=== PATIENT | male | born 1985 | race Caucasian/White ===

== ENCOUNTER 2017-01-13 18:55 | Emergency (ER) | payer OTHER ==
[2017-01-13] MEDS ORDERED: Lactated Ringers 1,000 ML IV ONE ×2 (18:57→19:20)
[2017-01-13] MEDS ORDERED: Diphtheria,Pertussis(Acell),Tetanus Vaccine 0.5 ML Syringe IM ONE (19:02)
--- NOTE | 2017-01-13 19:16 | PCM.SN ---
- Free Text/Narrative Note: Dr. Wakefield dictating an addendum note as I have assisted with the transfer medications for this patient. The case was discussed with Dr. Joseph in the ER at [facility] at 19 10 PM. He is aware of this case and has accepted the patient for transfer. Flight team is being arranged and Dr. Fernandez and Dr. Arita are at bedside.
--- NOTE | 2017-01-13 19:24 | PCM.SN ---
- Free Text/Narrative Note: Called to ER for Trauma Code. Upon arrival, pt is awake with spontaneous respirations. 16g PIV started to Rt AC with 10mL of blood drawn for lab.
[2017-01-13 19:56] LABS: CHLORIDE,CL 104 mmol/L (98-110); SODIUM,NA 140 mmol/L (136-146)
--- NOTE | 2017-01-13 20:24 | PCM.CONS ---
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 Report from bystanders and EMS reports a loss of consciousness of 10-15 minutes. Patient was awake and alert when he arrived in the emergency room. He was oriented to person and time, but not completely oriented to place. He complains of left leg pain and right hip pain. Onset of Symptoms: Reports: Today Duration of Symptoms: Reports: Hour(s): Location: Reports: Face, Lower Extremity, Left Quality: Reports: Sharp, Stabbing Severity: Moderate Improves with: Reports: Rest Worsens with: Reports: Movement Context: Reports: Trauma Associated Symptoms: Reports: Confusion. Denies: Headaches, Nausea/Vomiting - Related Data Allergies/Adverse Reactions: Allergies Allergy/AdvReac Type Severity Reaction Status Date / Time No Known Allergies Allergy Verified 01/13/17 19:51 Home Medications: Home Meds Dextroamphetamine/Amphetamine [Adderall] 0 mg PO DAILY 01/13/17 [History] Past Medical History Psychiatric History: Reports: ADHD H&P Review of Systems - Review of Systems: Review Of Systems: See Below General: Denies: Fever, Chills HEENT: Reports: Other (Laceration above the right eye) Cardiovascular: Denies: Chest Pain, Palpitations, Dyspnea on Exertion Gastrointestinal: Denies: Abdominal Pain, Black Stool, Bloody Stool, Constipation, Diarrhea Genitourinary: Denies: Dysuria, Frequency, Burning, Pain Musculoskeletal: Reports: Leg Pain (Left leg) Skin: Denies: Cyanosis, Jaundice, Mottled Psychiatric: Reports: Confusion. Denies: Depression, Mood Lability, Anxiety Neurological: Denies: Confusion, Pre-Existing Deficit, Seizure, Syncope, Tingling, Weakness Hematologic/Lymphatic: Reports: No Symptoms Immunologic: Reports: No Symptoms Exam - Exam Exam: See Below - Exam Quality Assessment: Supplemental Oxygen, Urinary Catheter (Placed after digital rectal examination and no blood at the urethral meatus) General: Alert, Cooperative, Moderate Distress, Sedated, Lethargic (Around his is easily) HEENT: Conjunctiva Clear, EACs Clear, EOMI, Hearing Intact, Mucosa Moist & [place] , Nares Patent, Pupils Equal, Pupils Reactive, PERRLA Neck: Supple, Trachea Midline, Other (Cervical collar left in place. No neck tenderness.) Lungs: Clear to Auscultation, Normal Respiratory Effort. No: Decreased Breath Sounds, Crackles, Rales, Rhonchi, Stridor, Wheezing Cardiovascular: Regular Rate, Regular Rhythm, Normal S1, Normal S2. No: Irregular Rhythm, Tachycardia, Systolic Murmur GI/Abdominal Exam: Soft, Non-Tender, No Organomegaly, No Distention. No: Guarding, Rigid, Rebound, Tender (Male) Exam: No Hernia, Normal Inspection, Normal Prostate, Circumcised. No : Urethral Discharge Rectal (Males) Exam: Normal Exam, Normal Rectal Tone, Prostate Normal Back Exam: Normal Inspection, Full Range of Motion. No: CVA Tenderness (L), CVA Tenderness (R), Paraspinal Tenderness, Vertebral Tenderness Extremities: No Pedal Edema, Slow Capillary Refill, Leg Pain (Left leg with lower one third deformity. Skin is intact.). No: Joint Swelling, Fermin's Sign , Increased Warmth, Mottled, Pallor, Redness Peripheral Pulses: 4+: Posterior Tibial (L), Posterior Tibial (R), Dorsalis Pedis (L), Dorsalis Pedis (R) Skin: Warm, Dry, Intact, Other (Facial abrasions. 3 cm right eyebrow laceration.) Neurological: Cranial Nerves Intact, Strength Equal Bilateral Neuro Extensive - Mental Status: Alert (Oriented 2.), Normal Cognition, Memory Intact, Disorientation to Place, Nl Response to Commands, Opens Eyes to Commands , Other (GCS 13-14) Psychiatric: Alert, Normal Affect, Normal Mood - Patient Data Lab Results Last 24 hrs: Laboratory Results - last 24 hr 01/13/17 01/13/17 01/13/17 Range/Units 18:54 18:54 19:30 WBC 13.58 H (4.0-11.0) K/uL RBC 4.41 L (4.50-5.90) M/uL Hgb 13.8 (13.0-17.0) g/dL Hct 40.9 (38.0-50.0) % MCV 92.7 (80.0-98.0) fL MCH 31.3 (27.0-32.0) pg MCHC 33.7 (31.0-37.0) g/dL RDW Std Deviation 50.8 (28.0-62.0) fl RDW Coeff of Ga 15 (11.0-15.0) % Plt Count 294 (150-400) K/uL MPV 10.40 (7.40-12.00) fL Neut % (Auto) 78.4 (48.0-80.0) % Lymph % (Auto) 14.2 L (16.0-40.0) % Addison % (Auto) 6.3 (0.0-15.0) % Eos % (Auto) 0.9 (0.0-7.0) % Baso % (Auto) 0.2 (0.0-1.5) % Neut # (Auto) 10.7 H (1.4-5.7) K/uL Lymph # (Auto) 1.9 (0.6-2.4) K/uL Addison # (Auto) 0.9 H (0.0-0.8) K/uL Eos # (Auto) 0.1 (0.0-0.7) K/uL Baso # (Auto) 0.0 (0.0-0.1) K/uL Nucleated RBC % 0.0 /100WBC Nucleated RBCs # 0 K/uL Sodium 140 (136-146) mmol/L Potassium 2.9 L (3.5-5.1) mmol/L Chloride 104 (98-110) mmol/L Carbon Dioxide 25 (21-31) mmol/L BUN 12 (6.0-23.0) mg/dL Creatinine 1.0 (0.6-1.5) mg/dL Est Cr Clr Drug Dosing TNP Estimated GFR (MDRD) > 60.0 ml/min Glucose 176 H (60-110) mg/dL Calcium 8.9 (8.8-10.8) mg/dL Total Bilirubin 0.5 (0.1-1.5) mg/dL AST 47 H (5-40) IU/L ALT 37 (8-54) IU/L Alkaline Phosphatase 55 (40-150) Total Protein 7.0 (6.0-8.0) g/dL Albumin 4.2 (3.5-5.0) g/dL Globulin 2.8 (2.0-3.5) g/dL Albumin/Globulin Ratio 1.5 (1.3-2.8) Urine Color YELLOW Urine Appearance CLEAR Urine pH 7.0 (5.0-8.0) Ur Specific [employer] 1.020 (1.001-1.035) Urine Protein NEGATIVE (NEGATIVE) mg/dL Urine Glucose (UA) 100 H (NEGATIVE) mg/dL Urine Ketones NEGATIVE (NEGATIVE) mg/dL Urine Occult Blood SMALL H (NEGATIVE) Urine Nitrite NEGATIVE (NEGATIVE) Urine Bilirubin NEGATIVE (NEGATIVE) Urine Urobilinogen 0.2 (<2.0) EU/dL Ur Leukocyte Esterase NEGATIVE (NEGATIVE) Urine RBC 10-12 (0-2/HPF) Urine WBC 0-1 (0-5/HPF) Ur Epithelial Cells RARE (NONE-FEW) Urine Bacteria FEW (NEGATIVE) Result Diagrams: 01/13/17 18:54 01/13/17 18:54 Imaging Impressions Last 24 hrs: Chest x-ray and pelvic views revealed no acute abnormalities. There is a distal one third left tib-fib fracture. There is displacement. Consult PN Assessment/Plan (1) Fall from height of greater than 3 feet SNOMED Code(s): 4623781 Code(s): W19.XXXA - UNSPECIFIED FALL, INITIAL ENCOUNTER Priority: High Current Visit: Yes (2) Injury resulting from fall from height SNOMED Code(s): 107008677 Code(s): W17.89XA - OTHER FALL FROM ONE LEVEL TO ANOTHER, INITIAL ENCOUNTER Priority: High Current Visit: Yes (3) Loss of consciousness for less than 30 minutes SNOMED Code(s): 954316260 Code(s): QVN1079 - Priority: High Current Visit: Yes (4) Fracture of tibia with fibula, left, closed SNOMED Code(s): 645782076 Code(s): S82.202A - UNSP FRACTURE OF SHAFT OF LEFT TIBIA, INIT FOR CLOS FX; S82.402A - UNSP FRACTURE OF SHAFT OF LEFT FIBULA, INIT FOR CLOS FX Priority: High Current Visit: Yes Qualifiers: Encounter type: initial encounter Qualified Code(s): S82.202A - Unspecified fracture of shaft of left tibia, initial encounter for closed fracture; S82.402A - Unspecified fracture of shaft of left fibula, initial encounter for closed fracture; S82.402A - Unspecified fracture of shaft of left fibula, initial encounter for closed fracture Problem List Initiated/Reviewed/Updated: Yes Plan: Given the patient's fall from a height greater than 15 feet and loss of consciousness for 10-15 minutes with mild disorientation determination was made that transfer to a higher level of care was needed. Chest x-ray, abdomen and pelvic views and left lower extremity. X-rays were obtained. Patient does have a displaced left lower extremity fracture and the distal one third involving both the tibia and fibula. The cervical collar was left in place. No C-spine x-rays were obtained. Patient was kept in a cervical collar, but removed from the spine board. His neck was further stabilized with 10 pound sand bags bilaterally. He is being transferred by ground ambulance to [facility] in [place], [place].
--- NOTE | 2017-01-14 11:20 | CR ---
EXAM DATE: 01/13/17 PATIENT'S AGE: 31 Patient: BLANCA HINOJOSA Facility: [place], [place] Site . Site : 1985 Study: XRay Pelvis [id number]/15/2017 7:23:51 PM Ordering Physician: Doctor Chase Final Report: Portable AP pelvis obtained on a backboard. 2 VIEWS INDICATION: Injury. IMPRESSION: No visualized fracture. Alignments anatomic. No additional osseous lesion. Dictated by Bay Mullins MD @ Jan 13 2017 7:53PM (Electronic Signature) Report Signed by Proxy. JASMYNE
--- NOTE | 2017-01-14 11:21 | CR ---
EXAM DATE: 01/13/17 PATIENT'S AGE: 31 Patient: BLANCA HINOJOSA Facility: [place], [place] Site . Site : 1985 Study: XRay Chest [id number]/15/2017 7:24:21 PM Ordering Physician: Doctor Chase Final Report: INDICATION: TRAUMA-PT FELL FROM PLATFORM FROM A HEIGHT OF 15 FEET TECHNIQUE: Chest 1 view. Overlying artifact degrades evaluation COMPARISON: None FINDINGS: Cardiovascular and mediastinum: Heart size and vasculature are normal in caliber and appearance. Mediastinum is within normal limits. Lungs and pleural space: No focal consolidation. No sign of pleural effusion. No pneumothorax. Bones and soft tissues: No significant findings. IMPRESSION: No acute cardiopulmonary disease. Dictated by Clovis Paredes MD @ 01/13/2017 7:57:19 PM Dictated by: Clovis Paredes MD @ 01/13/2017 19:57:28 (Electronic Signature) Report Signed by Proxy. [facility] HOSPITALShahab
--- NOTE | 2017-01-14 11:22 | CR ---
EXAM DATE: 01/13/17 PATIENT'S AGE: 31 Patient: BLANCA HINOJOSA Facility: [place], [place] Site . Site : 1985 Study: XRay Extremity Left TIB FIB [id number]/15/2017 7:50:01 PM Ordering Physician: Doctor Chase Final Report: Portable left tibia fibula and left ankle 4 VIEWS INDICATION: Injury. IMPRESSION: Midshaft fractures left tibia and fibula. Posterior and lateral displacement with minor comminution. Additional linear fractures in the distal shaft of the fibula distal to the transverse comminuted displaced fracture. No disruption of the ankle mortise. Proximal tibia and fibula appear to be intact. Dictated by Bay Mullins MD @ Jan 13 2017 8:00PM (Electronic Signature) Report Signed by Proxy. JASMYNE
== END 2017-01-13 20:10 ==
LOC: MW.ED 18:55
DX: S82.452A Displaced comminuted fracture of shaft of left fibula, initial encounter for closed fracture (principal); S82.252A Displaced comminuted fracture of shaft of left tibia, initial encounter for closed fracture; S01.111A Laceration without foreign body of right eyelid and periocular area, initial encounter; W17.89XA Other fall from one level to another, initial encounter
CPT/HCPCS: 36415; 51702; 71010; 72170; 73590; 80053; 81001; 85025; 90471; 90715; 93005; 96360; 99291; 99292; G0390; J7120; 99285